=== PATIENT | female | born 1965 | race Caucasian/White ===

== ENCOUNTER 2017-10-09 19:03 | Emergency (ER) | payer BC ==
[2017-10-09] MEDS: HYDROCODONE/APAP (5/325) TAB PO (22:17)
== END 2017-10-09 23:45 | disposition home or self-care (01) ==
LOC: FTE 23:45
DX: S92.902A Unspecified fracture of left foot, initial encounter for closed fracture (principal); W01.0XXA Fall on same level from slipping, tripping and stumbling without subsequent striking against object, initial encounter; Y92.9 Unspecified place or not applicable
CPT/HCPCS: 29515; 73610; 73630-LT; 99283-25